=== PATIENT | male | born 1945 | race African-American/Black ===

== ENCOUNTER 2016-08-28 12:26 | Emergency (ER) | payer OTHER ==
[~2016-08-28] VITALS: Ht 167.6 cm; Wt 67.1 kg
--- NOTE | 2016-08-28 12:48 | ED HAND/WRIST INJURY COMPLAINT ---
History of Present Illness General Chief Complaint: Hand or Wrist Injury Stated Complaint: LAC TO LEFT POINTER Source: patient, friend Exam Limitations: no limitations Vital Signs & Intake/Output Vital Signs & Intake/Output Vital Signs Date Time Temp Pulse Resp B/P Pulse O2 O2 Flow FiO2 Ox Delivery Rate 08/28 1516 62 18 196/88 98 Room Air ED Intake and Output 08/29 0000 08/28 1200 Intake Total 0 Output Total Balance 0 Intake, Oral 0 Patient 148 lb Weight Allergies Coded Allergies: No Known Allergies (08/28/16) Reconcile Medications No Known Home Medications Triage Note: PT TO ED C/O LAC TO LEFT INDEX FINGER FROM A SAW. HAPPENED THIS AM. UNSURE OF LAST TETANUS SHOT. Triage Nurses Notes Reviewed? yes HPI: Patient is a 71-year-old male presents complaining of a laceration to his left index finger. Patient was using electric saw when he accidentally lacerated his finger. Injury occurred prior to arrival, approximately 45 minutes ago. Pain is mild, worsens with palpation. Patient is right-hand dominant. Patient received a tetanus immunization just prior to my evaluation. Patient denies numbness, weakness, decreased range of motion of his finger. (LAURO CHRISTOPHER) Past History Travel History Traveled to [place] past 21 day No Medical History Any Pertinent Medical History? none Tetanus Vaccine: 08/28/16 Surgical History Surgical History: non-contributory Psychosocial History What is your primary language Greenlandic Tobacco Use: Current Daily Use Daily Tobacco Use Amount/Type: => 5 Cigarettes daily ETOH Use: occasional use Illicit Drug Use: denies illicit drug use Family History Hx Contributory? No (LAURO CHRISTOPHER) Review of Systems Review of Systems Constitutional: Reports: no symptoms. EENTM: Denies: blurred vision. Respiratory: Denies: short of breath. Cardiovascular: Denies: chest pain. GI: Denies: abdominal pain. Musculoskeletal: Reports: see HPI. Skin: Reports: see HPI. Neurological/Psychological: Denies: headache, numbness, paresthesia. Hematologic/Endocrine: Reports: bleeding (FROM WOUND). Immunologic/Allergic: Denies: splenectomy. (LAURO CHRISTOPHER) Physical Exam Physical Exam General Appearance: well developed/nourished, alert, awake Head: atraumatic, normal appearance Eyes: Bilateral: normal appearance, PERRL, EOMI. Ears, Nose, Throat: hearing grossly normal Neck: normal inspection, supple, full range of motion Cardiovascular/Respiratory: regular rate/rhythm, no respiratory distress Back: normal inspection, normal range of motion Hand Left: 2 CM LACERATION TO THE DORSAL SURFACE OF THE LEFT INDEX FINGER OVER THE PROXIMAL PHALANX. nO VISIBLE OR PALPABLE FOREIGN BODY. nO VISIBLE OR FUNCTIONAL TENDON DEFICIT. mINIMAL TENDERNESS TO THE AREA. cAPILLARY REFILL NORMAL. sENSATION GROSSLY INTACT. Hand Right: normal inspection, normal range of motion Neurologic/Tendon: normal sensation, normal motor functions, normal tendon functions Skin: warm/dry (LAURO CHRISTOPHER) Progress Differential Diagnosis: LACERATION, TENDON LACERATION, FOREIGN BODY, FRACTURE, HYPERTENSION, HYPERTENSIVE URGENCY Diagnostic Imaging: Viewed by Me: Radiology Read. Discussed w/RAD: Radiology Read. Radiology Impression: PATIENT: MELANI JOHNS PRESENT AGE: 71 PATIENT ACCOUNT NO: [id number] : 44 LOCATION: [facility] ORDERING PHYSICIAN: LAURO URBINA SERVICE DATE: 08/28/16 EXAM TYPE: RAD - XRY-FINGERS, LEFT EXAMINATION: XR FINGER, LEFT CLINICAL INFORMATION: Left index finger laceration COMPARISON: None TECHNIQUE: Three views of the left index finger. FINDINGS: No radiopaque foreign body. No fracture. Mild degenerative changes of the interphalangeal joints, 1st MCP and CMC joints. IMPRESSION: No fracture or radiopaque foreign body. DICTATED BY: VERONIKA SRINIVASAN MD DATE/TIME DICTATED:08/28/161428 [employer] HOU[employer] HAND:TO DATE/TIME TRANSCRIBED:08/28/161428 CONFIDENTIAL, DO NOT COPY WITHOUT APPROPRIATE AUTHORIZATION. <Electronically signed in Other Vendor System> SIGNED BY: VERONIKA SRINIVASAN MD 08/28/16 [id number] (LAURO CHRISTOPHER) Plan of Care: Orders Procedure Date/time Status XRY-FINGERS, LEFT 08/28 1319 Active No cardiopulmonary or neurovascular complaints. Wrok up for patient's elevated blood pressure deferred. Stressed the importance to the patient and his friend about follow up with a primary care provider this week. Patient lives in [place], [place]. Instructed to contact a PCP local to him tomorrow morning for further evaluation. See procedure note (LAURO CHRISTOPHER) Departure Departure Disposition: HOME OR SELF CARE Condition: Stable Clinical Impression Primary Impression: Finger laceration Qualifiers: Encounter type: initial encounter Qualified Code: S61.219A - Laceration without foreign body of unspecified finger without damage to nail, initial encounter Secondary Impressions: Elevated blood pressure reading Additional Instructions: It is very important that you follow up with a primary doctor within 1 week for further evaluation of your blood pressure. You should call to make an appointment with a doctor in [place] tomorrow morning. Return to the ER if chest pain, headache, numbness, weakness, blurred vision. Sutures should remain in for 10 days. Return to the ER or follow up with a primary care doctor for suture removal. Return to the ER immediately if any signs of infection, pus from the wound, redness spreading, increasing pain. Departure Forms: Customer Survey General Discharge Information Prescriptions: Current Visit Scripts No Known Home Medications (LAURO CHRISTOPHER) PA/HISTORY FACULTY MEMBER Co-Sign Statement Statement: ED Attending supervision documentation- [] I saw and evaluated the patient. I have also reviewed all the pertinent lab results and diagnostic results. I agree with the findings and the plan of care as documented in the PA's/HISTORY FACULTY MEMBER's documentation. [X] I have reviewed the ED Record and agree with the PA's/HISTORY FACULTY MEMBER's documentation. [] Additions or exceptions (if any) to the PAs/HISTORY FACULTY MEMBER's note and plan are summarized below: [] (MIRTA LANG,LAUREL) Procedures Laceration/Wound Repair Laceration/Wound Repair: Wound Location: left index finger Wound's Depth, Shape: linear Wound Length (cm): 3 Wound Explored: clean Irrigated w/ Saline (ccs): 400 Betadine Prep? Yes Anesthesia: digit block, 1% lidocaine Volume Anesthetic (ccs): 4 Suture Size/Type: 5:0, nylon Number of Sutures: 7 Splint Applied? Yes By Who? by nurse (LAURO CHRISTOPHER)
--- NOTE | 2016-08-28 14:34 | RADIOLOGY REPORT ---
EXAMINATION: XR FINGER, LEFT CLINICAL INFORMATION: Left index finger laceration COMPARISON: None TECHNIQUE: Three views of the left index finger. FINDINGS: No radiopaque foreign body. No fracture. Mild degenerative changes of the interphalangeal joints, 1st MCP and CMC joints. IMPRESSION: No fracture or radiopaque foreign body.
[2016-08-28 15:16] VITALS: BP 196/88
== END 2016-08-28 15:19 ==
LOC: ERH 12:26
DX: S61.211A Laceration without foreign body of left index finger without damage to nail, initial encounter (principal); R03.0 Elevated blood-pressure reading, without diagnosis of hypertension; W27.0XXA Contact with workbench tool, initial encounter
CPT/HCPCS: 73140-LT; 90471